=== PATIENT | female | born 1990 | race Caucasian/White ===

== ENCOUNTER 2016-11-27 02:54 | Observation (INO) | payer OTHER ==
[~2016-11-27] VITALS: Ht 152.4 cm; Wt 67.0 kg
[~2016-11-27 02:54] MED LIST: ALBUTEROL SUL0.083 % IN; AMOXICILLIN500 MG PO; ANUCORT-HC25 MG RE; CEPHALEXIN500 MG PO; COLACE100 MG PO; GABAPENTIN300 MG PO; KEFLEX500 MG PO; LORTAB 5 OR; LORTAB 7.5-3251 TAB PO; METHADONE40 MG PO; MOTRIN800 MG PO; NEURONTIN600 MG PO; OXYCODONE15 MG OR; PERCODAN OR; PRENATAL OR; PROCARDIA XL30 MG PO; PROCARDIA10 MG PO; QVAR80 MCG IN; SEROQUEL100 MG PO; SEROQUEL300 MG PO; SEROQUEL400 MG PO; TORADOL OR; VENTOLIN HFA IN; VICOPROFEN OR; VISTARIL 50MG C50 M1 PO; WELLBUTRIN SR150 MG PO; WELLBUTRIN150 M2 PO; ZOFRAN ODT4 MG PO
--- NOTE | 2016-11-27 02:55 | NUR ---
PATIENT TO ROOM 12 VIA EMS STRETCHER. AT BEDSIDE FOR EVAL.
--- NOTE | 2016-11-27 03:19 | NUR ---
BREATHING TREATMENT GIVEN. IT WAS EXPLAINT TO HER ABOUT THE PROCESS OF DEPOSITION TO THE LUNGSBY TAKING DEEP BREATH IN THROUGHTOUT THE TREATMENT.
--- NOTE | 2016-11-27 03:20 | NUR ---
RECEIVING NEB TX BY RT
[2016-11-27 03:23] LABS: HEMATOCRIT 29.3 % (37.0-47.0); MEAN CORPUSCULAR HGB CONC 34.1 g/L CALC (32.0-36.0); NEUT# 11.06 thou/uL (2.00-7.15); RED BLOOD COUNT 3.33 mill/uL (4.20-5.60); RED CELL DISTRI WIDTH 13.7 % (11.5-15.5)
[2016-11-27 03:24] LABS: BARBITURATES NEGATIVE (NEGATIVE); COCAINE NEGATIVE (NEGATIVE); METHADONE POSITIVE (NEGATIVE); OXCYCODONE NEGATIVE (NEGATIVE); TETRAHYDROCANNABIONOL NEGATIVE (NEGATIVE); TRICYLIC ANTIDEPRESSANTS NEGATIVE (NEGATIVE)
[2016-11-27 03:34] LABS: ALBUMIN 3.5 g/dL (3.2-5.0); ALKALINE PHOSPHATASE 124 u/l (38-126); ANION GAP 15 (6-22 (CALC)); BILIRUBIN, TOTAL 0.8 mg/dL (0.0-1.4); BUN 6 mg/dL (7-17); BUN/CREATININE RATIO 11 (12-20 (CALC)); CALCIUM 8.8 mg/dL (8.4-10.2); CARBON DIOXIDE 21 mmol/l (22-30); CHLORIDE 104 mmol/l (95-108); CREATININE 0.5 mg/dL (0.5-1.0); GFR > 60 ML/MIN (>=60 (CALC)); GFR FOR AFR.AMER. > 60 ML/MIN (>=60 (CALC)); GLUCOSE 103 mg/dL (65-105); POTASSIUM 3.2 mmol/l (3.5-5.1); SGOT/AST 21 u/l (14-36); SGPT/ALT 28 u/l (9-52); SODIUM 137 mmol/l (137-146); TOTAL PROTEIN 7.4 g/dL (6.3-8.2)
--- NOTE | 2016-11-27 04:03 | NUR ---
receiving 3rd neB TX
--- NOTE | 2016-11-27 04:08 | NUR ---
C/O STRESS INCONTINENCE WITH COUGH. PANTIES AND PERIPAD OBTAINED FOR CHANGE
--- NOTE | 2016-11-27 05:03 | NUR ---
EATING JELLO. HAS PERIODIC COUGH WHICH IS NOT FREQUENT OR FORCEFUL ON ARRIVAL. HAS USED PHONE AND TALKED TO FAMILY. BECOME SOB WITH EXERTION-WALKING ACROSS HALLWAY TO BATHROOM. DURING WHICH TIME, COUGH RETURNS
--- NOTE | 2016-11-27 05:03 | NUR ---
AWAITING CXR RESULTS.
--- NOTE | 2016-11-27 06:05 | NUR ---
REPORT GIVEN TO SHANA CLEMENTE AND PT TO ROOM 281 VIA W/C. ALERT. COOPERATIVE. PERIODIC COUGH PERSISTS
[2016-11-27 06:29] VITALS: BP 81/51; BP 97/62
--- NOTE | 2016-11-27 06:57 | NUR ---
CALL PLACED TO AT [phone]. GAVE REPORT, AWARE OF CONSULT.
--- NOTE | 2016-11-27 07:00 | NUR ---
SHIFT CHANGE FROM CHYNA, PT AWAKE ALERT AND ORIENTED SITTING UP IN BED, COUGHING AT THIS TIME, C/O PAIN ALL OVER BODY. REPORTED SHE HAS $600.00 IN HER POSESSION FOR HER RENT AND FAMILY MEMBER COMING LATER TO RECEIVE MONEY, REQUESTING TO ALLOW HER TO GO OFF UNIT FOR SHORT TIME TO DELIVER MONEY TO FAMILY. ADVISED MAY GO OFF UNIT BUT TO REPORT IF SHE IS GOING TO SMOKE, SHE DENIES SMOKING, ADVISED IF OFF UNIT WHEN MD COMES TO ROUND SHE WILL MISS VISIT, SHE STATES UNDERSTANDING AND SAID SHE WILL RETURN WITHIN 10 MINS. WILL CONTINUE TO MONITOR.
[2016-11-27 08:04] VITALS: BP 94/49
--- NOTE | 2016-11-27 08:55 | NUR ---
PT LEFT UNIT @ 0855 WITH "SPOUSE" AND RETURNED @ 0952, RELAXING IN ROOM AT THIS TIME.
[2016-11-27 10:47] VITALS: BP 92/54
[2016-11-27] MEDS ORDERED: PREDNISONE20 MG PO (11:49)
[2016-11-27] MEDS ORDERED: PROVENTIL0.083 % IN (11:50)
--- NOTE | 2016-11-27 14:50 | NUR ---
[facility] IS IN THE BUILDING ABLE TO GET A NEBULIZER MACHINE AND DELIVER TO THE PT. SPOKE WITH TARA COOMBS RN CASE MANAGER , CALLED ALL LOCAL PHARMACY'S , [facility] CLOSED AT 2PM TODAY. SPOKE WITH PT AND INSTRUCTED HER TO GIVE THE SCRIPT TO THE [facility] REACTOR KETTLE OPERATOR VERBALIZED UNDERSTANDING. [facility] .
--- NOTE | 2016-11-27 21:39 | NUR ---
Discharge instructions given. Patient verbalizes understanding of same. Discharged in stable condition via Ambulatory to Home with significant other. All belongings sent with pt.
[2016-11-28] MEDS ORDERED: MUCINEX600 MG PO (16:01)
[2016-11-28] MEDS ORDERED: AUGMENTIN875TAB PO (16:02)
== END 2016-11-27 14:09 | disposition home or self-care (01) | DRG 781 ==
LOC: ENPENDDIS → ED 02:54 → ED-I 03:10 → ED 03:10 → ED-I 04:15 → ED 05:42 → MS2 05:43
PROVIDERS: Emergency Medicine; ADMIT Internal Medicine; ATTEND Internal Medicine
DX: O99.512 Diseases of the respiratory system complicating pregnancy, second trimester (principal); J45.901 Unspecified asthma with (acute) exacerbation; Z3A.19 19 weeks gestation of pregnancy; Z87.891 Personal history of nicotine dependence; Z79.891 Long term (current) use of opiate analgesic
CPT/HCPCS: G0378

== ENCOUNTER 2016-11-27 23:43 | Emergency (ER) | payer OTHER ==
[~2016-11-27 23:43] MED LIST changes: +PREDNISONE20 MG PO; +PROVENTIL0.083 % IN
[2016-11-28] MEDS ORDERED: MUCINEX600 MG PO (16:01)
[2016-11-28] MEDS ORDERED: AUGMENTIN875TAB PO (16:02)
== END 2016-11-27 23:55 | disposition left against medical advice (07) | DRG 951 ==
LOC: ED 23:43 → LWOBS 23:55
DX: Z91.19 Patient's noncompliance with other medical treatment and regimen (principal)

== ENCOUNTER 2016-11-28 06:05 | Inpatient (IN) | payer OTHER ==
[~2016-11-28] VITALS: Ht 152.4 cm; Wt 69.5 kg
--- NOTE | 2016-11-28 06:10 | NUR ---
RECEIVED VIA EMS, C/O SOB
--- NOTE | 2016-11-28 06:37 | NUR ---
ATTEMPTING TO OBTAIN IV SITE BUT PT COUGHING, WILL NOT LET THIS NURSE ATTEMPT IV TO LAC AND DEMANDS A PAD DUE TO INCONT. OF URINE WHILE COUGHING.
--- NOTE | 2016-11-28 06:49 | NUR ---
RESPIRATORY TREATMENT GIVEN. IT WAS EXPLAINT TO HER HOR TO BREATH DEEPLY FOR GOOD DEPOSITION TO THE LUNGS.
--- NOTE | 2016-11-28 06:50 | NUR ---
REPORT GIVEN TO SILVIO BAILEY. NEB TREATMENT IN PROGRESS
[2016-11-28 07:25] LABS: HEMATOCRIT 28.4 % (37.0-47.0); HEMOGLOBIN 9.4 g/dl (12.0-16.0); IMMATURE GRANULOCYTES 2.5 % (0.0-1.0); MEAN CELL VOLUME 89.3 fL CALC (80.0-100.0); MEAN CORPUSCULAR HGB 29.6 pG CALC (26.0-32.0); MEAN CORPUSCULAR HGB CONC 33.1 g/L CALC (32.0-36.0); NEUT# 12.63 thou/uL (2.00-7.15); RED BLOOD COUNT 3.18 mill/uL (4.20-5.60); RED CELL DISTRI WIDTH 13.6 % (11.5-15.5)
[2016-11-28 07:29] LABS: ALBUMIN 3.4 g/dL (3.2-5.0); ALKALINE PHOSPHATASE 119 u/l (38-126); ANION GAP 15 (6-22 (CALC)); BILIRUBIN, TOTAL 0.5 mg/dL (0.0-1.4); BUN 8 mg/dL (7-17); BUN/CREATININE RATIO 17 (12-20 (CALC)); CARBON DIOXIDE 18 mmol/l (22-30); CHLORIDE 107 mmol/l (95-108); CREATININE 0.5 mg/dL (0.5-1.0); GFR > 60 ML/MIN (>=60 (CALC)); GFR FOR AFR.AMER. > 60 ML/MIN (>=60 (CALC)); GLUCOSE 103 mg/dL (65-105); POTASSIUM 3.5 mmol/l (3.5-5.1); SGOT/AST 19 u/l (14-36); SGPT/ALT 25 u/l (9-52); SODIUM 136 mmol/l (137-146)
[2016-11-28 07:42] LABS: MYOGLOBIN 59 ng/mL (0 - 62)
--- NOTE | 2016-11-28 07:45 | NUR ---
PATIENT REQUESTS TO TAKE HER MORNING DOSE OF METHADONE. PROVIDER GAVE THE OK FOR PATIENT TO TAKE HER MORNING DOSE OF METHADONE 105MG PREMIXED
--- NOTE | 2016-11-28 08:45 | NUR ---
PATIENT RESTING AWAITING MEDICATION INFUSION TO BE COMPLETED. PATIENT COUGHING DECREASED AFTER BEING MEDICATED. PATIENT STATES NOT SOB FROM WHEN SHE FIRST GOT HERE. PAIN 4 ON 0-10 SCALE
--- NOTE | 2016-11-28 09:44 | NUR ---
PATIENT RESTING AWAITING DR HERNANDEZ TO COME AND DISCUSS PLAN OF CARE WITH HER
--- NOTE | 2016-11-28 10:45 | NUR ---
DR. HERNANDEZ AT BEDSIDE EXAMINATING PATIENT.
--- NOTE | 2016-11-28 11:39 | NUR ---
REPORT GIVEN TO JOHN ANGUIANO
--- NOTE | 2016-11-28 11:40 | NUR ---
Admission Note Report Given to: JOHN ANGUIANO Transported by: X Wheelchair Stretcher Transported with: X Nurse Transporter X Patent IV O2 Drier Tender Naphthalene PT IN STABLE CONDITION. IV SITE HEALTHY. ALL BELONGINGS WITH PT, INCLUDING CLOTHING, PURSE, SHOES AND CELL PHONE.
--- NOTE | 2016-11-28 11:45 | NUR ---
PT ADMITTED TO ICU BED 4 MED SURG OVERFLOW, PT ALERT AND OREINTED STOOD FROM AND TRANSFERRED SELF TO BED, ADMISSION ASSESSMENT COMPLETED SEE INTERVENTIONS, LUNGS WITH RHONCHI AND WHEEZES NOTED, O2 AT 2L VIA NC, SHORT OF BREATH WITH EXERTION, ENCOURAGED TO REST PRN, ORIENTED TO ROOM AND UNIT, SAFETY MEASURES INTRODUCED, TELE READING SR RATE IN THE 60'S, PT HAS TIGHT MOIST COUGH PRODUCTIVE OF THICK GREEN SPUTUM, SPECIMEN SENT FORM ER PER REPORT, PT HAS HISTORY OF HEP C, AND ATTENDS A METHADONE CLINIC IN [place], CALL PRAFUL IYERANANYA MANN, WILL CONTINUE TO MONITOR.
[2016-11-28 12:00] VITALS: BP 89/54
--- NOTE | 2016-11-28 12:30 | NUR ---
LAB AT BEDSIDE TO DRAW LAB WORK ORDERED PT TOELRATED W/O INCIDENT, PT ASKING IF SHE CAN GO DOWN TO SEE HER (7MTH OLD) CHILD THAT SHE DOES'T WANT TO HAVE THE BABY COME IN TO THE HOSPITAL, INSFORMED PT WE WILL HAVE TO CLEAR THIS WITH PHYSICIAN RELATED TO TELEMETRY ORDERS, WILL CONTINUE TO MONITOR
[2016-11-28 13:00] VITALS: BP 105/60
--- NOTE | 2016-11-28 13:12 | NUR ---
PT RESTING IN BED, MEDICATED ORDERED WITH SOLUMEDROL, CONTINUES TO TOLERATE O2 VIA NC, CONTINUES TO HAVE COUGH OCCASIONALLY PRODUCTIVE, WILL CONTINUE TO MONITOR
--- NOTE | 2016-11-28 14:08 | NUR ---
PT AMBULATING IN ROOM, OFFERS NO NEW COMPLAINTS, CLEARED TO GO OFF UNIT WITHOUT TELE FOR 15 MIN TO VISIT WITH HER CHILD, SPOUSE TAKES PT VIA WHEELCHAIR, PT INSTRUCTED NOT TO SMOKE OR USE E CIGERETEES, VERBALIZES UNDERSTANDING, WILL CONTINUE TO MONITOR.
--- NOTE | 2016-11-28 14:30 | NUR ---
PT REQUESTING DC TODAY RELATED TO NEED TO GO TO [facility] IN AM STATES "I CAN'T MISS A DOSE", AND I CAN'T BE DISCHARGED THAT EARLY IN THE MORNING CAUE I WONT HAVE A RIDE THAT EARLY AND AGAIN REPEATS "I CAN'T MISS A DOSE" AWARE.
[2016-11-28] MEDS ORDERED: MUCINEX600 MG PO (16:01)
[2016-11-28] MEDS ORDERED: AUGMENTIN875TAB PO (16:02)
--- NOTE | 2016-11-28 16:37 | NUR ---
IV SITE REMOVED INTACT, PT HAS D/C INSTRUCTIONS AND GETTING DRESSED. WILL NOTIFY STAFF WHEN READY
--- NOTE | 2016-11-28 16:42 | NUR ---
Discharge instructions given. Patient verbalizes understanding of same. Discharged in stable condition via Ambulatory to Home with friend. All belongings sent with pt. PT DECLINED WAITING FOR WHEELCHAIR, AMBULATED OFF UNIT WITH BELONGINGS IN HAND.
== END 2016-11-28 16:45 | disposition home or self-care (01) | DRG 781 ==
LOC: ENPENDDIS → ED 06:05 → ED-I 11:00 → ED 11:20 → ICU 11:21
PROVIDERS: Emergency Medicine; ADMIT Internal Medicine; ATTEND Internal Medicine
DX: O99.512 Diseases of the respiratory system complicating pregnancy, second trimester (principal); J45.901 Unspecified asthma with (acute) exacerbation; G89.29 Other chronic pain; M54.5 Low back pain; Z3A.19 19 weeks gestation of pregnancy; Z87.891 Personal history of nicotine dependence; Z79.891 Long term (current) use of opiate analgesic; Z77.22 Contact with and (suspected) exposure to environmental tobacco smoke (acute) (chronic)

== ENCOUNTER 2017-01-19 10:26 | Emergency (ER) | payer OTHER ==
[~2017-01-19] VITALS: Ht 152.4 cm; Wt 70.0 kg
[~2017-01-19 10:26] MED LIST changes: +AUGMENTIN875TAB PO; +MUCINEX600 MG PO
[2017-01-19] MEDS ORDERED: AMOXICILLIN500 MG PO (11:42)
[2017-01-19 11:53] VITALS: BP 111/65
== END 2017-01-19 12:01 | disposition home or self-care (01) | DRG 605 ==
LOC: ED 10:26
DX: S80.212A Abrasion, left knee, initial encounter (principal); O98.413 Viral hepatitis complicating pregnancy, third trimester; O98.813 Other maternal infectious and parasitic diseases complicating pregnancy, third trimester; S50.02XA Contusion of left elbow, initial encounter; H60.93 Unspecified otitis externa, bilateral; O99.513 Diseases of the respiratory system complicating pregnancy, third trimester; J45.909 Unspecified asthma, uncomplicated; B19.20 Unspecified viral hepatitis C without hepatic coma; O99.333 Smoking (tobacco) complicating pregnancy, third trimester; F17.210 Nicotine dependence, cigarettes, uncomplicated; W01.0XXA Fall on same level from slipping, tripping and stumbling without subsequent striking against object, initial encounter; Y92.241 Library as the place of occurrence of the external cause; Z3A.28 28 weeks gestation of pregnancy

== ENCOUNTER 2017-03-12 09:55 | Inpatient (IN) | payer OTHER ==
[~2017-03-12] VITALS: Ht 154.9 cm; Wt 71.7 kg
--- NOTE | 2017-03-12 09:43 | NUR ---
, WITH BLANK 04/19/17, PREVIOUS X 2, ARRIVED TO TRIAGE VIA EMS WITH VAGINAL BLEEDING, PT STATES AT 0915 SHE FELT A "GUSH OF BLOOD COMING OUT". TRANSFERED TO BED. URINE COLLECTED. BRIGHT RED BLOOD WITH SMALL CLOTS COVERED THE PT'S UNDERWEAR. EFM STARTED.
[2017-03-12 09:53] VITALS: BP 136/81
[~2017-03-12 09:55] MED LIST changes: +FERROUS SULF325 M2 PO; +PRENATABS RX PO
[2017-03-12 10:00] LABS: URINE BILIRUBIN - DIPSTICK NEGATIVE (NEGATIVE); URINE BLOOD DIPSTICK LARGE (NEGATIVE); URINE COLOR YELLOW; URINE GLUCOSE - DIPSTICK NEGATIVE (NEGATIVE); URINE KETONE NEGATIVE (NEGATIVE); URINE LEUK ESTERASE NEGATIVE (NEGATIVE); URINE NITRITE - DIPSTICK NEGATIVE (Negative); URINE PROTEIN - DIPSTICK NEGATIVE (NEG-TRACE); URINE SPECIFIC GRAVITY 1.015; URINE UROBILINOGEN - DIPSTICK 0.2 E.U./dL (0.2)
[2017-03-12 10:01] LABS: URINE CLARITY SLIGHT CLOUDY; URINE RBC 25-50 RBC/hpf (0-5)
[2017-03-12 10:02] LABS: BARBITURATES NEGATIVE (NEGATIVE); COCAINE NEGATIVE (NEGATIVE); METHADONE POSITIVE (NEGATIVE); OXCYCODONE NEGATIVE (NEGATIVE); TETRAHYDROCANNABIONOL NEGATIVE (NEGATIVE); TRICYLIC ANTIDEPRESSANTS NEGATIVE (NEGATIVE)
--- NOTE | 2017-03-12 10:05 | NUR ---
18G IV STARTED ON RIGHT AC, LABS DRAWN.
--- NOTE | 2017-03-12 10:09 | NUR ---
DR. MCKINNON AT BEDSIDE, USED SPECULUM TO VISUALIZE, POSITIVE BLOOD ON VAGINAL VAULT WITH SMALL CLOTS. MD DID SVE ON PT, FINGERTIP/40%, HEAD LOW PER MD. MD DISCUSSING PLAN OF CARE WITH PT, INCLUDING POSSIBLE TRANSFER TO ANOTHER FACILITY. PT IS IN AGREEMENT.
--- NOTE | 2017-03-12 10:12 | NUR ---
LR BOLUS STARTED, PT REPOSITIONED TO LEFT TILT.
--- NOTE | 2017-03-12 10:20 | NUR ---
DISCUSSED WITH PT PLAN OF CARE, INCLUDING MEDICATIONS ORDERED. PT IS REFUSING MAGNESIUM SULFATE, STATING "I HAD THAT LAST TIME I WAS HERE AND I FELT WEIRD, I WON'T TAKE THE MEDICATION". ATTEMPTS MADE TO EXPLAIN TO PT IMPORTANCE OF TREATMENT, BUT PT IS REFUSING. DR. MCKINNON MADE AWARE.
--- NOTE | 2017-03-12 10:35 | NUR ---
PT UP TO BATHROOM, VOIDED, SMALL AMOUNT OF BLOOD WIPED, THEN BACK TO BED ON LEFT TILT.
--- NOTE | 2017-03-12 10:40 | NUR ---
DR. MCKINNON CANCELLED MAGNESIUM SULFATE ORDER AT THIS TIME AFTER CONSULTING WITH [facility].
--- NOTE | 2017-03-12 10:47 | NUR ---
DR. MCKINNON MAKING ARRANGEMENTS FOR PT TO BE TRANSFERED TO [facility]. AEROMED UNABLE TO DETERMINE IF THEY WILL BE ABLE TO FLY AT THIS TIME DUE TO WEATHER, WAITING TO HEAR BACK FROM [facility].
[2017-03-12 10:49] LABS: IMMATURE GRANULOCYTES 1.1 % (0.0-1.0); MEAN CELL VOLUME 88.8 fL CALC (80.0-100.0); MEAN CORPUSCULAR HGB 29.6 pG CALC (26.0-32.0); MEAN CORPUSCULAR HGB CONC 33.3 g/L CALC (32.0-36.0); NEUT# 3.98 thou/uL (2.00-7.15); RED BLOOD COUNT 3.04 mill/uL (4.20-5.60); RED CELL DISTRI WIDTH 12.6 % (11.5-15.5)
[2017-03-12 10:54] VITALS: BP 131/66
--- NOTE | 2017-03-12 11:00 | NUR ---
PT CRYING, TALKING TO SIGNIFICANT OTHER ON THE PHONE, WAS ABLE TO ARRANGE FOR GRANDMOTHER TO COME AND SENIOR [employer] CONSULTANT HER 10 MONTH CHILD SINCE PT IS EXPECTED TO TRANSFER TO ANOTHER FACILITY.
[2017-03-12 11:06] LABS: ALBUMIN 3.2 g/dL (3.2-5.0); ALKALINE PHOSPHATASE 150 u/l (38-126); ANION GAP 12 (6-22 (CALC)); BILIRUBIN, TOTAL 0.3 mg/dL (0.0-1.4); BUN 6 mg/dL (7-17); BUN/CREATININE RATIO 10 (12-20 (CALC)); CALCIUM 8.7 mg/dL (8.4-10.2); CARBON DIOXIDE 22 mmol/l (22-30); CHLORIDE 105 mmol/l (95-108); CREATININE 0.6 mg/dL (0.5-1.0); GFR > 60 ML/MIN (>=60 (CALC)); GFR FOR AFR.AMER. > 60 ML/MIN (>=60 (CALC)); GLUCOSE 71 mg/dL (65-105); POTASSIUM 4.1 mmol/l (3.5-5.1); SGOT/AST 38 u/l (14-36); SGPT/ALT 48 u/l (9-52); SODIUM 135 mmol/l (137-146); TOTAL PROTEIN 6.4 g/dL (6.3-8.2)
--- NOTE | 2017-03-12 11:09 | NUR ---
PT UP TO BATHROOM, VOIDED, SMALL AMOUNT OF BLOOD WITH SMALL CLOTS PRESENT.
--- NOTE | 2017-03-12 11:30 | NUR ---
ARRANGEMENTS BEING MADE FOR PT TO GO TO [facility] AEROMED UNABLE TO FLY DUE TO WEATHER.
[2017-03-12] MEDS ORDERED: METHADONE10 M1 PO (11:31)
[2017-03-12] MEDS ORDERED: METHADONE40 MG PO (11:31)
--- NOTE | 2017-03-12 11:35 | NUR ---
PT'S 10 MONTH OLD CHILD LEFT WITH GRANDMOTHER AT THIS TIME.
[2017-03-12] MEDS ORDERED: PROCARDIA10 MG PO (11:44)
[2017-03-12] MEDS ORDERED: VISTARIL25 MG PO (11:45)
--- NOTE | 2017-03-12 11:55 | NUR ---
JOAN FROM [facility] CALLED, REPORT GIVEN. TEAM IS EXPECTED TO LEAVE THEIR FACILITY BETWEEN 12:30 AND 13:00 AND ARRIVE HERE IN 1H 30MIN.
--- NOTE | 2017-03-12 12:00 | NUR ---
PT IS HAVING CONTRACTIONS, DENIES FEELING PAIN WITH THEM, SMALL VAGINAL BLEEDING CONTINUES. DR. MCKINNON TALKED TO PT ABOUT IMPORTANCE OF DOING MAGNESIUM SULFATE AND PT CONTINUES TO REFUSE MAGNESIUM SULFATE. PT THEN STATES THAT SHE IS GOING TO LEAVE AND HAVE HER FAMILY MEMBER DRIVE HER TO [facility] "IT IS TAKING TOO LONG FOR THE TRANSPORT TO GET HERE AND I AM HUNGRY". MD AND NURSE DISCUSSED WITH PT IMPORTANCE OF STAYING IN THE HOSPITAL AND RECEIVING APPROPRIATE CARE, BUT PT STATES SHE IS LEAVING.
--- NOTE | 2017-03-12 12:08 | NUR ---
PT SIGNED AMA FORM.
--- NOTE | 2017-03-12 12:15 | NUR ---
IV REMOVED, TIP INTACT, 2X2 APPLIED.
--- NOTE | 2017-03-12 12:20 | NUR ---
EFM OFF PER PT'S REQUEST.
--- NOTE | 2017-03-12 12:30 | NUR ---
PT LEFT THE UNIT AMBULATORY AT THIS TIME.
== END 2017-03-12 12:30 | disposition left against medical advice (07) | DRG 781 ==
LOC: OB 09:55 → OBOP 09:55 → OB 10:40
DX: O46.93 Antepartum hemorrhage, unspecified, third trimester (principal); O99.323 Drug use complicating pregnancy, third trimester; O60.03 Preterm labor without delivery, third trimester; F11.20 Opioid dependence, uncomplicated; O34.219 Maternal care for unspecified type scar from previous cesarean delivery; N85.8 Other specified noninflammatory disorders of uterus; Z3A.34 34 weeks gestation of pregnancy; Z86.19 Personal history of other infectious and parasitic diseases
CPT/HCPCS: J2540

== ENCOUNTER 2017-04-29 13:15 | Emergency (ER) | payer OTHER ==
[~2017-04-29] VITALS: Ht 152.4 cm; Wt 70.0 kg
[~2017-04-29 13:15] MED LIST changes: +METHADONE10 M1 PO; +VISTARIL25 MG PO
[2017-04-29] MEDS ORDERED: LORTAB 5-325 MG1 TAB PO (14:46)
[2017-04-29] MEDS ORDERED: PENICILLN VK500 MG PO (14:46)
[2017-04-29] MEDS ORDERED: MOTRIN800 MG PO (14:46)
[2017-04-29 14:55] VITALS: BP 139/74
== END 2017-04-29 14:55 | disposition home or self-care (01) | DRG 159 ==
LOC: ED 13:15
DX: K08.89 Other specified disorders of teeth and supporting structures (principal); F17.210 Nicotine dependence, cigarettes, uncomplicated; K04.7 Periapical abscess without sinus; S02.5XXA Fracture of tooth (traumatic), initial encounter for closed fracture

== ENCOUNTER 2017-05-17 16:43 | Emergency (ER) | payer OTHER ==
[~2017-05-17] VITALS: Ht 152.4 cm; Wt 68.2 kg
[~2017-05-17 16:43] MED LIST changes: +LORTAB 5-325 MG1 TAB PO; +PENICILLN VK500 MG PO
[2017-05-17] MEDS ORDERED: PENICILLN VK500 MG PO (16:56)
[2017-05-17] MEDS ORDERED: LORTAB 5-325 MG1 TAB PO (16:56)
[2017-05-17 17:13] VITALS: BP 140/89
== END 2017-05-17 17:13 | disposition home or self-care (01) | DRG 159 ==
LOC: ED 16:43
DX: K08.89 Other specified disorders of teeth and supporting structures (principal)

== ENCOUNTER 2017-05-20 10:33 | Emergency (ER) | payer OTHER ==
[~2017-05-20] VITALS: Ht 152.4 cm; Wt 85.0 kg
[2017-05-20] MEDS ORDERED: AMOXICILLIN500 M2 PO (11:04)
[2017-05-20 11:16] VITALS: BP 118/59
== END 2017-05-20 11:21 | disposition home or self-care (01) | DRG 159 ==
LOC: ED 10:33
DX: K04.7 Periapical abscess without sinus (principal); R22.0 Localized swelling, mass and lump, head; K08.89 Other specified disorders of teeth and supporting structures

== ENCOUNTER 2017-05-23 10:11 | Emergency (ER) | payer OTHER ==
[~2017-05-23] VITALS: Ht 152.4 cm; Wt 90.0 kg
[~2017-05-23 10:11] MED LIST changes: +AMOXICILLIN500 M2 PO
[2017-05-23] MEDS ORDERED: NAPROSYN500 MG PO (12:21)
[2017-05-23] MEDS ORDERED: CLEOCIN150 M1 PO (12:21)
[2017-05-23 12:33] VITALS: BP 124/86
== END 2017-05-23 12:36 | disposition home or self-care (01) | DRG 159 ==
LOC: ED 10:11
DX: K08.89 Other specified disorders of teeth and supporting structures (principal)

== ENCOUNTER 2017-07-25 16:32 | Emergency (ER) | payer OTHER ==
[~2017-07-25] VITALS: Ht 152.4 cm; Wt 68.0 kg
[~2017-07-25 16:32] MED LIST changes: +CLEOCIN150 M1 PO; +NAPROSYN500 MG PO
[2017-07-25] MEDS ORDERED: AUGMENTIN875TAB PO (16:46)
[2017-07-25 16:59] VITALS: BP 133/89
== END 2017-07-25 16:58 | disposition home or self-care (01) | DRG 159 ==
LOC: ED 16:32
DX: K02.9 Dental caries, unspecified (principal); K03.81 Cracked tooth; F17.210 Nicotine dependence, cigarettes, uncomplicated

== ENCOUNTER 2017-10-17 15:20 | Emergency (ER) | payer OTHER ==
[~2017-10-17] VITALS: Ht 152.4 cm; Wt 70.0 kg
[2017-10-17] MEDS ORDERED: LORTAB 5/3255 MG PO (15:44)
[2017-10-17] MEDS ORDERED: PENICILLN VK500 MG PO (15:44)
[2017-10-17 15:48] VITALS: BP 136/89
== END 2017-10-17 15:50 | disposition home or self-care (01) | DRG 159 ==
LOC: ED 15:20
DX: K08.89 Other specified disorders of teeth and supporting structures (principal); K02.9 Dental caries, unspecified

== ENCOUNTER 2017-11-01 17:08 | Emergency (ER) | payer OTHER ==
[~2017-11-01] VITALS: Ht 152.4 cm; Wt 73.0 kg
[~2017-11-01 17:08] MED LIST changes: +LORTAB 5/3255 MG PO
[2017-11-01] MEDS ORDERED: PENICILLN VK500 MG PO (17:36)
[2017-11-01 17:38] VITALS: BP 145/44
== END 2017-11-01 17:38 | disposition home or self-care (01) | DRG 159 ==
LOC: ED 17:08
DX: K08.89 Other specified disorders of teeth and supporting structures (principal); K03.81 Cracked tooth; R68.84 Jaw pain

== ENCOUNTER 2017-11-03 17:16 | Emergency (ER) | payer OTHER ==
[~2017-11-03] VITALS: Ht 152.4 cm; Wt 80.0 kg
[2017-11-03] MEDS ORDERED: CLEOCIN150 MG PO (17:43)
[2017-11-03] MEDS ORDERED: TORADOL PO (17:43)
[2017-11-03 18:01] VITALS: BP 126/82
== END 2017-11-03 18:02 | disposition home or self-care (01) | DRG 607 ==
LOC: ED 17:16
DX: L60.0 Ingrowing nail (principal); K08.89 Other specified disorders of teeth and supporting structures; R22.42 Localized swelling, mass and lump, left lower limb

== ENCOUNTER 2017-11-21 17:18 | Emergency (ER) | payer OTHER ==
[~2017-11-21] VITALS: Ht 152.4 cm; Wt 87.4 kg
[~2017-11-21 17:18] MED LIST changes: +CLEOCIN150 MG PO; +TORADOL PO
[2017-11-21] MEDS ORDERED: AMOXICILLIN500 MG PO (17:46)
[2017-11-21] MEDS ORDERED: ULTRAM50 M1 PO (17:46)
[2017-11-21 17:51] VITALS: BP 136/90
== END 2017-11-21 18:00 | disposition home or self-care (01) | DRG 159 ==
LOC: ED 17:18
DX: K02.9 Dental caries, unspecified (principal); F17.210 Nicotine dependence, cigarettes, uncomplicated; K08.89 Other specified disorders of teeth and supporting structures